=== PATIENT | male | born 1970 ===

== ENCOUNTER → 2025-04-30 08:22 | Outpatient (REF) | payer OTHER, SELFPAY | LOC: HWRCS 08:22 | PROVIDERS: ATTENDING PHYSICIAN Internal Medicine Cardiovascular Disease; FAMILY PHYSICIAN Family Medicine | DX: R00.2 Palpitations (principal); I10 Essential (primary) hypertension | CPT/HCPCS: 93306 ==

== ENCOUNTER → 2025-05-03 13:00 | Outpatient (REF) | payer OTHER, SELFPAY | LOC: RCS 13:00 | PROVIDERS: ATTENDING PHYSICIAN Internal Medicine Cardiovascular Disease; FAMILY PHYSICIAN Family Medicine | DX: R00.0 Tachycardia, unspecified (principal); I10 Essential (primary) hypertension | CPT/HCPCS: 93225; 93226 ==

== ENCOUNTER → 2025-05-24 10:50 | Outpatient (REF) | payer OTHER, SELFPAY | LOC: RCS 10:50 | PROVIDERS: ATTENDING PHYSICIAN Internal Medicine Cardiovascular Disease; FAMILY PHYSICIAN Family Medicine | DX: I47.29 Other ventricular tachycardia (principal); R06.02 Shortness of breath | CPT/HCPCS: 93017 ==